=== PATIENT | male | born 1960 | race Caucasian/White ===

== ENCOUNTER 2016-11-22 10:21 | Inpatient (IN) | payer MEDICARE, MEDICAID ==
[2016-11-22] MEDS ORDERED: Sodium Chloride 0.9% 10 ML Syringe FLUSH PRN ×2 (10:49→13:57)
--- NOTE | 2016-11-22 10:59 | EDM.PDOC ---
ED HPI SEIZURE COMPLAINT - General Chief Complaint: Syncope Stated Complaint: Fall Time Seen by Provider: 11/22/16 10:55 Source of Information: Reports: Patient History Limitations: Reports: No limitations - History of Present Illness INITIAL COMMENTS - FREE TEXT/NARRATIVE: Per pt he was dizzy. per Health services, pt had his hypertension meds changed last week and today when he was to get his medication she went by the house and fell 3 times during her visit. States upon checking his blood pressure, the systolic number was in the 70s. Systolic BP 71 upon arrival. Denies pain . Per [facility], pt had similar episode last week. Symptom Onset Date: 11/22/16 Timing/Duration: Reports: intermittent Event Occurred (Where): home Event (Witnessed/Unwitnessed): witnessed Context: Reports: new/change in medications Pre Event Symptom(s): Reports: no other symptoms Event Symptoms: Reports: no other symptoms - Related Data Allergies/ADRs: Allergies Allergy/AdvReac Type Severity Reaction Status Date / Time No Known Allergies Allergy Verified 07/01/16 20:43 Home Meds: Home Meds Albuterol Inhaler 2 puff IH QID PRN 01/12/14 [History] Alumina/Magnesia/Simethicone 2 tbsp PO TID PRN 01/12/14 [History] Amitriptyline [Elavil] 150 mg PO QPM 01/12/14 [History] Budesonide/Formoterol [Symbicort 160-4.5 MCG] 2 puff IH BID 01/12/14 [History] Cholecalciferol (Vitamin D3) [Vitamin D3] 2 tab PO DAILY 01/12/14 [History] Cyclobenzaprine HCl [Amrix] 15 mg PO BID PRN 01/12/14 [History] Dextran 70/Hypromellose/PF [Artificial Tears Drops] 2 drop OP QID PRN 01/12/14 [ History] Folic Acid 1 mg PO DAILY 01/12/14 [History] Gabapentin [Neurontin] 3 caplet PO TID 01/12/14 [History] Methocarbamol [Robaxin] 1,000 tab PO TID 01/12/14 [History] Multivitamin with Minerals [Multivitamins with Minerals] 1 tab PO DAILY [History] Omeprazole 20 mg PO DAILY 01/12/14 [History] QUEtiapine [SEROquel] 100 tab PO BID PRN 01/12/14 [History] Simvastatin [Zocor] 40 mg PO BEDTIME 01/12/14 [History] Thiamine HCl 100 mg PO DAILY 01/12/14 [History] hydrOXYzine HCl [Atarax] 25 mg PO TID PRN 01/12/14 [History] Lisinopril/Hydrochlorothiazide [Lisinopril-Hctz 10-12.5 mg Tab] 1 tab PO DAILY 11/22/16 [History] Past Medical History HEENT History: Reports: Impaired vision Cardiovascular History: Reports: Hypertension Respiratory History: Reports: Asthma Musculoskeletal History: Reports: Back pain, chronic Neurological History: Reports: Concussion Social & Family History - Family History Family Medical History: Noncontributory - Tobacco Use Smoking Status *Q: Current Every Day Smoker Years of Tobacco use: 46 Packs/Tins Daily: 1 Used Tobacco, but Quit: No Second Hand Smoke Exposure: Yes - Caffeine Use Caffeine Use: Reports: Coffee, Energy drinks, Soda, Tea - Alcohol Use Days Per Week of Alcohol Use: 0 - Recreational Drug Use Recreational Drug Use: Yes Drug Use in Last 12 Months: Yes Recreational Drug Type: Reports: Marijuana/Hashish Recreational Drug Use Frequency: Daily ED ROS GENERAL - Review of Systems Review Of Systems: See Below Neurological: Reports: Dizziness, Syncope - Physical Exam Exam: See Below Exam Limited By: No limitations General Appearance: alert, WD/WN, no apparent distress Eye Exam: bilateral eye: normal inspection, PERRL Nose: normal inspection, normal mucosa, no blood Throat/Mouth: Normal inspection, Normal lips, Normal teeth, Normal gums, Normal oropharynx, Normal voice, No airway compromise Head Exam: atraumatic, normocephalic Neck: normal inspection, supple, non-tender, full range of motion Respiratory/Chest: no respiratory distress, lungs clear, normal breath sounds, no accessory muscle use, chest non-tender Cardiovascular: normal peripheral pulses, regular rate, rhythm, no edema, no gallop, no JVD, no murmur, no rub Neuro Exam (Abbreviated): alert, oriented, CN II-XII intact, normal cognition, normal gait, normal reflexes, no motor/sensory deficits Course - Vital Signs Last Recorded V/S: Last Vital Signs Temp 97.6 F 11/22/16 10:23 Pulse 96 11/22/16 10:23 Resp 18 11/22/16 10:23 BP 76/46 L 11/22/16 10:23 Pulse Ox 95 11/22/16 10:23 - Orders/Labs/Meds Orders: Active Orders 24 hr Category Date Time Status EKG Documentation Completion [RC] STAT Care 11/22/16 10:49 Active DRUG SCREEN URINE BIORAD [URCHEM] Stat Lab 11/22/16 10:49 Uncollected UA W/MICROSCOPIC [URIN] Stat Lab 11/22/16 10:49 Uncollected Potassium Chloride [KCL 20 MEQ in Water 100 ML] 20 meq Med 11/22/16 12:10 Active Premix Bag 1 bag IV ONETIME Sodium Chloride 0.9% [Normal Saline] 1,000 ml Med 11/22/16 11:00 Active IV .BOLUS Sodium Chloride 0.9% [Normal Saline] 1,000 ml Med 11/22/16 12:15 Active IV ASDIRECTED Sodium Chloride 0.9% [Saline Flush] Med 11/22/16 10:49 Active 10 ml FLUSH ASDIRECTED PRN Saline Lock Insert [OM.PC] Stat Oth 11/22/16 10:49 Ordered Medication Orders Sodium Chloride (Normal Saline) 1,000 mls @ 500 mls/hr IV .BOLUS EVERARDO Last Admin: 11/22/16 10:53 Dose: 500 mls/hr Potassium Chloride 20 meq/ (Premix) 100 mls @ 50 mls/hr IV ONETIME ONE Stop: 11/22/16 14:09 Last Admin: 11/22/16 12:30 Dose: 50 mls/hr Sodium Chloride (Normal Saline) 1,000 mls @ 100 mls/hr IV ASDIRECTED EVERARDO Last Admin: 11/22/16 12:49 Dose: 100 mls/hr Sodium Chloride (Saline Flush) 10 ml FLUSH ASDIRECTED PRN PRN Reason: Keep Vein Open Last Admin: 11/22/16 10:45 Dose: 10 ml Labs: Laboratory Tests 11/22/16 11/22/16 11/22/16 Range/Units 10:50 10:50 10:50 WBC 11.8 H (5.0-10.0) 10^3/uL RBC 4.78 (4.6-6.2) 10^6/uL Hgb 14.2 (14.0-18.0) g/dL Hct 39.4 L (40.0-54.0) % MCV 82.4 (80-100) fL MCH 29.7 (27.0-34.0) pg MCHC 36.0 H (33.0-35.0) g/dL Plt Count 321 (150-450) 10^3/uL Neut % (Auto) 56.0 (42.2-75.2) % Lymph % (Auto) 32.2 (20.5-50.1) % [place] % (Auto) 7.5 (2-8) % Eos % (Auto) 3.9 H (1.0-3.0) % Baso % (Auto) 0.4 (0.0-1.0) % PT 9.6 (9.0-12.0) SEC INR 1.0 (0.9-1.2) APTT 22.6 (22.0-34.0) SEC Sodium 141 (135-145) mmol/L Potassium 2.3 L* (3.6-5.0) mmol/L Chloride 101 (101-111) mmol/L Carbon Dioxide 28.0 (21.0-31.0) mmol/L Anion Gap 14.3 BUN 16 (7-18) mg/dL Creatinine 1.7 H (0.6-1.3) mg/dL Est Cr Clr Drug Dosing TNP Estimated GFR (MDRD) 42 BUN/Creatinine Ratio 9.41 Glucose 157 H (74-105) mg/dL Lactic Acid (0.5-2.2) mmol/L Calcium 9.5 (8.4-10.2) mg/dl Phosphorus 3.2 (2.5-4.6) mg/dL Magnesium 1.8 (1.8-2.5) mg/dL Total Bilirubin 0.7 (0.2-1.0) mg/dL AST 29 (10-42) IU/L ALT 50 (10-60) IU/L Alkaline Phosphatase 76 (42-121) IU/L Creatine Kinase (26-174) IU/L Creatine Kinase Index (0-2.4) % CK-MB (CK-2) (0.4-4.7) ng/mL Troponin I < 0.02 (0.00-0.02) ng/ml Total Protein 7.0 (6.7-8.2) g/dl Albumin 4.5 (3.2-5.5) g/dl Globulin 2.5 Albumin/Globulin Ratio 1.80 11/22/16 11/22/16 Range/Units 10:50 11:32 WBC (5.0-10.0) 10^3/uL RBC (4.6-6.2) 10^6/uL Hgb (14.0-18.0) g/dL Hct (40.0-54.0) % MCV (80-100) fL MCH (27.0-34.0) pg MCHC (33.0-35.0) g/dL Plt Count (150-450) 10^3/uL Neut % (Auto) (42.2-75.2) % Lymph % (Auto) (20.5-50.1) % [place] % (Auto) (2-8) % Eos % (Auto) (1.0-3.0) % Baso % (Auto) (0.0-1.0) % PT (9.0-12.0) SEC INR (0.9-1.2) APTT (22.0-34.0) SEC Sodium (135-145) mmol/L Potassium (3.6-5.0) mmol/L Chloride (101-111) mmol/L Carbon Dioxide (21.0-31.0) mmol/L Anion Gap BUN (7-18) mg/dL Creatinine (0.6-1.3) mg/dL Est Cr Clr Drug Dosing Estimated GFR (MDRD) BUN/Creatinine Ratio Glucose (74-105) mg/dL Lactic Acid 2.0 (0.5-2.2) mmol/L Calcium (8.4-10.2) mg/dl Phosphorus (2.5-4.6) mg/dL Magnesium (1.8-2.5) mg/dL Total Bilirubin (0.2-1.0) mg/dL AST (10-42) IU/L ALT (10-60) IU/L Alkaline Phosphatase (42-121) IU/L Creatine Kinase 130 (26-174) IU/L Creatine Kinase Index 1.4 (0-2.4) % CK-MB (CK-2) 1.80 (0.4-4.7) ng/mL Troponin I (0.00-0.02) ng/ml Total Protein (6.7-8.2) g/dl Albumin (3.2-5.5) g/dl Globulin Albumin/Globulin Ratio Meds: Medications Generic Name Dose Route Start Last Admin Trade Name Freq PRN Reason Stop Dose Admin Sodium Chloride 1,000 mls @ 500 mls/hr 11/22/16 11:00 11/22/16 10:53 Normal Saline IV 500 mls/hr .BOLUS EVERARDO Administration Potassium Chloride 20 meq/ 100 mls @ 50 mls/hr 11/22/16 12:10 11/22/16 12:30 Premix IV 11/22/16 14:09 50 mls/hr ONETIME ONE Administration Sodium Chloride 1,000 mls @ 100 mls/hr 11/22/16 12:15 11/22/16 12:49 Normal Saline IV 100 mls/hr ASDIRECTED EVERARDO Administration Sodium Chloride 10 ml 11/22/16 10:49 11/22/16 10:45 Saline Flush FLUSH 10 ml ASDIRECTED PRN Administration Keep Vein Open - Radiology Interpretation Free Text/Narrative:: no acute findings - Re-Assessments/Exams Free Text/Narrative Re-Assessment/Exam: 11/22/16 12:[address] James for observation admission for potassium replenishment and blood pressure monitoring. Departure - Departure Time of Disposition: 12:57 Disposition: Admitted As Inpatient 65 Condition: good Clinical Impression: Hypokalemia, Dehydration Instructions: Dehydration, Adult, [id number], Hypokalemia Forms: ED Department Discharge - My Orders Last 24 Hours: My Active Orders 11/22/16 10:49 EKG Documentation Completion [RC] STAT DRUG SCREEN URINE BIORAD [URCHEM] Stat UA W/MICROSCOPIC [URIN] Stat Sodium Chloride 0.9% [Saline Flush] 10 ml FLUSH ASDIRECTED PRN Saline Lock Insert [OM.PC] Stat 11/22/16 11:00 Sodium Chloride 0.9% [Normal Saline] 1,000 ml IV .BOLUS 11/22/16 12:10 Potassium Chloride [KCL 20 MEQ in Water 100 ML] 20 meq Premix Bag 1 bag IV ONETIME 11/22/16 12:15 Sodium Chloride 0.9% [Normal Saline] 1,000 ml IV ASDIRECTED - Assessment/Plan Last 24 Hours: My Active Orders 11/22/16 10:49 EKG Documentation Completion [RC] STAT DRUG SCREEN URINE BIORAD [URCHEM] Stat UA W/MICROSCOPIC [URIN] Stat Sodium Chloride 0.9% [Saline Flush] 10 ml FLUSH ASDIRECTED PRN Saline Lock Insert [OM.PC] Stat 11/22/16 11:00 Sodium Chloride 0.9% [Normal Saline] 1,000 ml IV .BOLUS 11/22/16 12:10 Potassium Chloride [KCL 20 MEQ in Water 100 ML] 20 meq Premix Bag 1 bag IV ONETIME 11/22/16 12:15 Sodium Chloride 0.9% [Normal Saline] 1,000 ml IV ASDIRECTED
[2016-11-22] MEDS ORDERED: Sodium Chloride 0.9% 1,000 ML IV SCH ×2 (11:00→12:15)
[2016-11-22 11:24] LABS: CHLORIDE,CL 101 mmol/L (101-111); SODIUM,NA 141 mmol/L (135-145)
--- NOTE | 2016-11-22 12:03 | CR ---
Clinical history: 55-year-old male syncopal episode. Interpretation: No acute cardiopulmonary abnormality. Normal cardiac silhouette without alveolar edema or dependent effusion. No lung mass, hilar lymphadenopathy or focal lobar pneumonia. No pneumothorax.
--- NOTE | 2016-11-22 12:06 | CT ---
Clinical history: 55-year-old hypertensive male smoker who experienced a syncopal episode. Scan technique: Volume acquisition of data emergency unenhanced CT scan of the head obtained with pa tient lying supine on the Siemens multi slice CT scanner [facility]. All data archived in the PACS system for storage and study (bone/brain windows). Interpretation: Uniformly thick bony calvarium without sign of pathologic skeletal lesion, skull fra cture, underlying brain contusion or epidural/subdural hematoma. Prominent but symmetric cerebral cortical atrophy. Underlying mirror-image normal ventricular system i.e. no hydrocephalus. No supratentorial or posterior fossa mass lesion and no focal areas of ischemic infarct or signs of acute intracerebral/intraventricular/subarachnoid bleed. (Physiologic midline pineal and symmetric choroid plexus calcifications). CONCLUSION: Atrophy. No sign of closed head injury, intracranial mass or infarct.
[2016-11-22] MEDS ORDERED: Potassium Chloride 20 MEQ in Premix Bag 1 BAG IV ONE (12:10)
[2016-11-22] MEDS ORDERED: Albuterol 6.7 GM Inhaler INH PRN (13:49)
[2016-11-22] MEDS ORDERED: Polyvinyl Alcohol 1.4% Ophth Soln 15 ML Bottle EYEBOTH PRN (13:49)
--- NOTE | 2016-11-22 14:15 | HP ---
CHIEF COMPLAINT: Recurrent fall. HISTORY OF PRESENT ILLNESS: The patient is a 55-year-old male who was admitted through the emergency room because the patient was noted by the Health Services that when they went to the house of the patient, the patient fell three times and was complaining of being dizzy. The blood pressure was checked and the systolic blood pressure was in the 70s. According to the Health Services, the patient's blood pressure medication was changed last week. At this time, the patient started having these dizzy episodes and now almost into a near syncope. The patient denies though any headache or chest pain, abdominal pain, nausea, vomiting, fever or chills. PAST MEDICAL HISTORY: Remarkable for hypertension, asthma, and chronic low back pain. SOCIAL HISTORY: The patient is single. Smokes one pack per day for about 40 years. Denies any recent alcohol intake.admits to recreational drug use( marijuana). FAMILY HISTORY: Noncontributory. REVIEW OF SYSTEMS: As in HPI. The rest of the review of systems is negative. HOME MEDICATIONS: 1. Albuterol inhaler. 2. Magnesium/simethicone. 3. Amitriptyline. 4. Symbicort. 5. Vitamin D3. 6. Amrix. 7. Artificial teardrops. 8. Folic acid. 9. Gabapentin. 10.Robaxin. 11.Multivitamins. 12.Omeprazole. 13.Lisinopril/hydrochlorothiazide. 14.Simvastatin. 15.Seroquel. 16.Thiamine. PHYSICAL EXAMINATION: General: The patient is alert and oriented. Vital signs: Blood pressure on arrival in the emergency room, systolic was 70 and after some IV fluids bolus, blood pressure is 103/80. SHEENT: Normocephalic. There are no signs of trauma. Extraocular muscles are intact. There is pink palpebral conjunctiva. Sclerae anicteric. Heart: Regular rate and rhythm. Normal S1 and S2. No gallops. No rubs. Lungs: Equal bilaterally. No crackles. No wheezing. Abdomen: Soft and nontender. Bowel sounds positive. Extremities: Negative for any gross deformities. No significant pedal edema. Neurologic: Nonfocal. LABORATORY AND X-RAY DATA: WBC is 11.8, hemoglobin is 14.2, hematocrit is 39.4, platelet is 321. Comp panel; potassium is 2.3, creatinine is 1.7, glucose is 157. The rest of the panel is unremarkable. Magnesium level is 1.8 and phosphorus is 3.2. CPK-MB is less than 0.02, troponin is less than 0.02, the rest of the panel is unremarkable. CAT scan of the head, atrophy but no signs of intracranial mass or infarcts. Chest x-ray is negative. ADMITTING DIAGNOSES: 1. Recurrent fall/syncope, most likely secondary to hypotension secondary to the blood pressure medication. 2. Hypokalemia. 3. Azotemia. 4. Asthma. 5. History of hypertension. TREATMENT PLAN: The patient is going to be admitted to observation. He will be on telemetry. He will be given IV fluids, normal saline. Potassium will be repleted. The rest of the management as necessary. Basic metabolic panel and CBC will be rechecked in a.m. The patient's lisinopril and hydrochlorothiazide is going to be discontinued at this time. [facility] /[id number] MTDDenisa
[2016-11-22] MEDS: Sodium Chloride 0.9% with KCl 1,000 ML IV SCH (14:47)
[2016-11-22] MEDS: Nicotine 21 MG/24 Hr Patch TRDERM SCH (14:48)
[2016-11-22] MEDS: Amitriptyline 25 MG Tab PO SCH (20:32)
[2016-11-22] MEDS: Simvastatin 40 MG Tab PO SCH (20:34)
[2016-11-22] MEDS ORDERED: Non-Formulary Medication 1 Each (Budesonide/Formoterol 2 PUFF) IH SCH (21:00)
[2016-11-23] MEDS: Ibuprofen 200 MG Tab PO PRN ×2 (00:18→07:49)
[2016-11-23] MEDS: Sodium Chloride 0.9% with KCl 1,000 ML IV SCH (04:16)
[2016-11-23] MEDS: Acetaminophen 325 MG Tab PO PRN ×3 (04:36→19:49)
[2016-11-23] MEDS: Omeprazole 20 MG Cap.CR PO SCH (06:13)
[2016-11-23 06:55] LABS: CHLORIDE,CL 107 mmol/L (101-111); SODIUM,NA 145 mmol/L (135-145)
[2016-11-23] MEDS ORDERED: Sodium Chloride 0.9% 10 ML Syringe FLUSH PRN (08:57)
[2016-11-23] MEDS ORDERED: Potassium Chloride 10 MEQ Tab.ER PO ONE (08:58)
[2016-11-23] MEDS: Thiamine 100 MG Tab PO SCH (09:03)
[2016-11-23] MEDS: Cholecalciferol (Vitamin D3) 400 Unit Tab PO SCH (09:03)
[2016-11-23] MEDS: Enoxaparin 40 MG/0.4 ML Syringe SUBCUT SCH (09:04)
[2016-11-23] MEDS: Folic Acid 1 MG Tab PO SCH (09:04)
[2016-11-23] MEDS: Nicotine 21 MG/24 Hr Patch TRDERM SCH (09:04)
[2016-11-23] MEDS: Ibuprofen 800 MG Tab PO SCH (10:16)
--- NOTE | 2016-11-23 10:57 | PN ---
DATE: 11/23/2016 SUBJECTIVE: The patient has been doing well and so far has not had any problems with dizziness and he has been going to the bathroom without any dizziness or fall. Telemetry has been sinus rhythm with no significant arrhythmia. The patient denies any chest pain, shortness of breath, abdominal pain, or any other significant complaint except for his chronic low back pain. LABORATORY DATA: Lab workup this morning, CBC; WBC is 9.9, hemoglobin is 12.9, hematocrit is 36.4, platelet is 300. Chem-6; potassium is 3.4 (improving), the rest of the panel unremarkable. OBJECTIVE: Vital Signs: Blood pressure is 148/86, pulse of 67, respirations of 20, temperature of 98. Heart: Regular rate and rhythm. Normal S1 and S2. No gallops. No rubs. Lungs: Coarse breath sounds bilaterally, but no significant crackles. Abdomen: Soft, nontender. Bowel sounds positive. Extremities: Negative for any significant pedal edema. No calf tenderness. PLAN: We will discontinue the IV fluids and will give him some potassium supplementation orally, and we will recheck a basic metabolic panel in a.m. We will increase his activity to ad juan r and we will continue to monitor him. If he continues to do well, anticipate discharge in a.m. [facility] /[id number]
[2016-11-23] MEDS: Simvastatin 40 MG Tab PO SCH (20:51)
[2016-11-23] MEDS: Amitriptyline 25 MG Tab PO SCH (20:52)
[2016-11-24] MEDS: Omeprazole 20 MG Cap.CR PO SCH (06:01)
[2016-11-24 06:57] LABS: CHLORIDE,CL 100 mmol/L (101-111); SODIUM,NA 144 mmol/L (135-145)
[2016-11-24] MEDS ORDERED: Potassium Chloride 10 MEQ Tab.ER PO ONE (08:05)
[2016-11-24] MEDS: Cholecalciferol (Vitamin D3) 400 Unit Tab PO SCH (08:14)
[2016-11-24] MEDS: Folic Acid 1 MG Tab PO SCH (08:14)
[2016-11-24] MEDS: Thiamine 100 MG Tab PO SCH (08:14)
[2016-11-24] MEDS: Ibuprofen 800 MG Tab PO SCH (08:14)
[2016-11-24] MEDS: Enoxaparin 40 MG/0.4 ML Syringe SUBCUT SCH (08:15)
[2016-11-24] MEDS: Nicotine 21 MG/24 Hr Patch TRDERM SCH (08:15)
[2016-11-24] MEDS ORDERED: amLODIPine 5 MG Tab PO SCH (09:00)
--- NOTE | 2016-11-24 09:18 | PN ---
DATE: 11/24/2016 SUBJECTIVE: The patient continues to do well. He has been up and about and he denies any dizziness or syncope or falling and he denies any chest pain, shortness of breath, nor any other complaints, and he would like to go home today. His blood pressure though is slowly creeping up, and potassium is still slightly low. Otherwise, no other concerns. OBJECTIVE: Vital Signs: Blood pressure is 165/79, pulse 72, respirations 20, temperature of 97.8. Heart: Regular rate and rhythm. Normal S1 and S2. No gallops. No rubs. Lungs: Equal bilaterally. No crackles. No wheezing. Abdomen: Soft, nontender. Bowel sounds positive. Extremities: Negative for any pedal edema. No calf tenderness. PLAN: I am going to start the patient on Norvasc 5 mg daily. We will cut down the dose of his simvastatin to 20 mg a day because of the drug interaction with Norvasc. I am also going to give potassium 40 mEq p.o. x1 today. We will plan to discharge him this afternoon as the patient is insistent in going home, but we will have him follow up with Dr. Schultz/[facility] next week for a recheck of his blood pressure and lab workup. ANDREA /[id number]
--- NOTE | 2016-11-24 12:17 | DISCH ---
FINAL DIAGNOSES: 1. Syncope secondary to hypotension secondary to the blood pressure medication. 2. Hypokalemia. 3. Dehydration. 4. Asthma. 5. Azotemia. 6. Hypertension. BRIEF HISTORY OF PRESENT ILLNESS: See H and P. PERTINENT LAB, X-RAY, AND OTHER TESTS: Please see H and P. HOSPITAL COURSE: The patient was admitted to telemetry floor. Patient was given IV fluids. Potassium was repleted and lisinopril and hydrochlorothiazide was discontinued. The patient did well with the above regimen. His telemetry remained in sinus rhythm and telemetry was discontinued and follow up blood workup showed improvement of his creatinine, but potassium was still slightly running low and this was again repleted. During the hospitalization, patient's blood pressure started creeping up and because of this, amlodipine 5 mg was added to his regimen. As patient would like to go home and insistent as he is feeling much better, patient was discharged and he is going to follow up with Dr. Gonzalez[facility] next week for a recheck of his blood pressure and recheck his basic metabolic panel. Patient's simvastatin was also decreased to 20 mg a day because of the interaction with amlodipine. CONDITION ON DISCHARGE: Improved. [facility] /[id number]
[2016-11-24 12:40] VITALS: BP 156/92
[2016-11-24] MEDS ORDERED: Simvastatin 10 MG Tab PO SCH (21:00)
--- NOTE | 2016-12-03 10:15 | EKG ---
11/22/2016 - REGINA ALMONTE- EKG is sinus rhythm with a rate of 82. Normal [place] interval. Normal axis. There is a nonspecific intraventricular conduction delay and nonspecific ST-T wave changes on the anterolateral leads. There are no signs of acute myocardial injury. [facility] /[id number]
== END 2016-11-24 12:41 | disposition home or self-care (01) | DRG 312 ==
LOC: DL.ED 10:21 → DL.MS 13:35 → OBSVTOIN 13:39
PROVIDERS: ADMIT Internal Medicine; ATTEND Internal Medicine
DX: I95.2 Hypotension due to drugs (principal); T50.995A Adverse effect of other drugs, medicaments and biological substances, initial encounter; E87.6 Hypokalemia; E86.0 Dehydration; J45.909 Unspecified asthma, uncomplicated; I10 Essential (primary) hypertension; M54.5 Low back pain; G89.29 Other chronic pain; F17.210 Nicotine dependence, cigarettes, uncomplicated
CPT/HCPCS: 36415; 70450; 71010; 80053; 82550; 82553; 83605; 83735; 84100; 84484; 85025; 85610; 85730; 93005; 93010; 96361; 96365; 99284; 99285; J3480; J7030 ×2; J7050; 80048; 80305; 81001; A9270-GY

== ENCOUNTER 2016-12-18 16:39 | Observation (INO) | payer MEDICARE, MEDICAID ==
--- NOTE | 2016-12-18 17:18 | EDM.PDOC ---
ED HPI Behavioral Health - General Stated Complaint: INCREASED CONFUSION/RECENT FALLS Time Seen by Provider: 12/18/16 16:50 Source of Information: Reports: Patient, Family Exam Limitations: Reports: No limitations - History of Present Illness INITIAL COMMENTS - FREE TEXT/NARRATIVE: This 56 yo male patient was brought to the ED by his behavioral health case manager and his guardian due to altered mentation. The patient reports he was placed on a mental health hold yesterday by the [facility] due to standing outside his door because he lost his keys. The patient reports he has been having some chronic back pain, but his pain is not new. The patient reports he did fall and hit his head a couple of weeks ago, but reports feeling well now. The patient's case workers report the patient has been having increased confusion over the past 3 weeks. The patient currently lives in his own apartment with assistance from his [facility]. The patient's behavioral health case manager and guardian believe that the patient needs to be placed in a basic unit. Onset of Symptoms: Reports: gradual Duration of Symptoms: Reports: Week(s): (3), Constant, Getting worse Severity: moderate Context, Behavioral Health: Reports: other - Related Data Allergies Allergy/AdvReac Type Severity Reaction Status Date / Time No Known Allergies Allergy Verified 12/18/16 16:51 Home Medications: Home Meds Albuterol Inhaler 2 puff IH QID PRN 01/12/14 [History] Alumina/Magnesia/Simethicone 2 tbsp PO TID PRN 01/12/14 [History] Amitriptyline [Elavil] 150 mg PO BEDTIME 01/12/14 [History] Budesonide/Formoterol [Symbicort 160-4.5 MCG] 2 puff IH BID 01/12/14 [History] Cholecalciferol (Vitamin D3) [Vitamin D3] 2,000 units PO DAILY 01/12/14 [History ] Folic Acid 1 mg PO DAILY 01/12/14 [History] Multivitamin with Minerals [Multivitamins with Minerals] 1 tab PO DAILY [History] Omeprazole 40 mg PO DAILY 01/12/14 [History] Thiamine HCl 100 mg PO DAILY 01/12/14 [History] hydrOXYzine HCl [hydrOXYzine] 25 mg PO TID PRN 01/12/14 [History] Cyclobenzaprine [Flexeril] 10 mg PO BEDTIME 11/22/16 [History] DULoxetine HCl [Duloxetine HCl] 60 mg PO DAILY 11/22/16 [History] Ibuprofen 800 mg PO TID PRN 11/22/16 [History] Lidocaine 5% [Lidoderm 5%] 1 patch TRDERM Q12H 11/22/16 [History] Nicotine Polacrilex [Nicotine Gum] 1 piece PO Q2H PRN 11/22/16 [History] Paliperidone Palmitate [Invega Sustenna] 117 mg IM Q28D 11/22/16 [History] Simvastatin [Zocor] 20 mg PO BEDTIME 30 Days 11/24/16 [Rx] amLODIPine [Norvasc] 5 mg PO DAILY 30 Days 11/24/16 [Rx] Dextran 70/Hypromellose [Artificial Tears] 2 drop EYEBOTH QID PRN 12/18/16 [ History] Potassium Chloride 20 meq PO BID 12/18/16 [History] Past Medical History HEENT History: Reports: Impaired vision Cardiovascular History: Reports: Hypertension Respiratory History: Reports: Asthma Musculoskeletal History: Reports: Back pain, chronic Neurological History: Reports: Concussion - Infectious Disease History Infectious Disease History: Reports: Chicken pox Social & Family History - Family History Family Medical History: Noncontributory - Tobacco Use Smoking Status *Q: Current Every Day Smoker Years of Tobacco use: 40 Packs/Tins Daily: 1 Used Tobacco, but Quit: No Second Hand Smoke Exposure: Yes - Caffeine Use Caffeine Use: Reports: Coffee - Alcohol Use Days Per Week of Alcohol Use: 0 - Recreational Drug Use Recreational Drug Use: No Drug Use in Last 12 Months: Yes Recreational Drug Type: Reports: Marijuana/Hashish Recreational Drug Use Frequency: Daily ED ROS GENERAL - Review of Systems Review Of Systems: ROS reveals no pertinent complaints other than HPI. ED EXAM, BEHAVIORAL HEALTH - Physical Exam Exam: See Below Exam Limited By: No limitations General Appearance: alert, WD/WN, mild distress, thin Eye Exam: bilateral eye: EOMI, normal inspection, PERRL Ears: normal external exam, normal canal, hearing grossly normal, normal TMs Nose: normal inspection, normal mucosa, no blood Throat/Mouth: Normal inspection, Normal lips, Normal teeth, Normal gums, Normal oropharynx, Normal voice, No airway compromise Head: atraumatic, normocephalic Neck: normal inspection, supple, non-tender, full range of motion Respiratory/Chest: no respiratory distress, lungs clear, normal breath sounds, no accessory muscle use, chest non-tender Cardiovascular: normal peripheral pulses, regular rate, rhythm, no edema, no gallop, no JVD, no murmur, no rub GI/Abdominal: normal bowel sounds, soft, non tender, no organomegaly, no distention, no abnormal bruit, no mass (Male) Exam: Deferred Rectal (Males) Exam: Deferred Back Exam: normal inspection, full range of motion, NT Extremities: normal inspection, normal range of motion, non-tender, normal capillary refill, no pedal edema Neurological: alert, normal mood/affect, CN II-XII intact, normal cognition, normal gait, normal reflexes, no motor/sensory deficits, oriented x 3 Psychiatric: alert, other (forgetful ) Skin Exam: Warm, Dry, Intact, Normal color, No rash COURSE, BEHAVIORAL HEALTH COMP - Course Vital Signs: Last Vital Signs Temp 36.6 C 12/18/16 18:33 Pulse 85 12/18/16 18:33 Resp 18 12/18/16 18:33 BP 112/70 12/18/16 18:33 Pulse Ox 99 12/18/16 18:33 Orders, Labs, Meds: Active Orders 24 hr Category Date Time Status CULTURE BLOOD [] Stat Lab 12/18/16 17:07 Received CULTURE BLOOD [] Stat Lab 12/18/16 17:33 Ordered Laboratory Tests 12/18/16 12/18/16 12/18/16 Range/Units 17:00 17:00 17:07 WBC 23.0 H (5.0-10.0) 10^3/uL RBC 4.81 (4.6-6.2) 10^6/uL Hgb 14.2 (14.0-18.0) g/dL Hct 40.1 (40.0-54.0) % MCV 83.4 (80-100) fL MCH 29.5 (27.0-34.0) pg MCHC 35.4 H (33.0-35.0) g/dL Plt Count 406 (150-450) 10^3/uL Neut % (Auto) 80.8 H (42.2-75.2) % Lymph % (Auto) 12.2 L (20.5-50.1) % Cass % (Auto) 5.7 (2-8) % Eos % (Auto) 1.1 (1.0-3.0) % Baso % (Auto) 0.2 (0.0-1.0) % Sodium (135-145) mmol/L Potassium (3.6-5.0) mmol/L Chloride (101-111) mmol/L Carbon Dioxide (21.0-31.0) mmol/L Anion Gap BUN (7-18) mg/dL Creatinine (0.6-1.3) mg/dL Est Cr Clr Drug Dosing mL/min Estimated GFR (MDRD) BUN/Creatinine Ratio Glucose (74-105) mg/dL Lactic Acid (0.5-2.2) mmol/L Calcium (8.4-10.2) mg/dl Magnesium (1.8-2.5) mg/dL Total Bilirubin (0.2-1.0) mg/dL AST (10-42) IU/L ALT (10-60) IU/L Alkaline Phosphatase (42-121) IU/L Ammonia (11-35) umol/L Total Protein (6.7-8.2) g/dl Albumin (3.2-5.5) g/dl Globulin Albumin/Globulin Ratio Amylase (28-100) U/L Lipase (22-51) U/L Urine Color Yellow (YELLOW) Urine Appearance Clear (CLEAR) Urine pH 6.5 (5.0-9.0) Ur Specific [place] 1.025 (1.005-1.030) Urine Protein Trace H (NEGATIVE) Urine Glucose (UA) Negative (NEGATIVE) Urine Ketones Negative (NEGATIVE) Urine Occult Blood Negative (NEGATIVE) Urine Nitrite Negative (NEGATIVE) Urine Bilirubin Small H (NEGATIVE) Urine Urobilinogen 0.2 (0.2-1.0) mg/dL Ur Leukocyte Esterase Negative (NEGATIVE) Urine RBC 0-5 /HPF Urine WBC 0-5 (0-5/HPF) /HPF Ur Epithelial Cells Few /HPF Calcium Oxalate Crystal Few H /HPF Urine Bacteria Occasional (0-FEW/HPF) /HPF Urine Opiates Screen Negative (NEGATIVE) Ur Oxycodone Screen Negative (NEGATIVE) Urine Methadone Screen Negative (NEGATIVE) Acetaminophen Ur Barbiturates Screen Negative (NEGATIVE) U Tricyclic Antidepress Positive H (NEGATIVE) Ur Phencyclidine Scrn Negative (NEGATIVE) Ur Amphetamine Screen Negative (NEGATIVE) U Methamphetamines Scrn Negative (NEGATIVE) Urine MDMA Screen Negative (NEGATIVE) U Benzodiazepines Scrn Negative (NEGATIVE) Urine Cocaine Screen Negative (NEGATIVE) U Marijuana (THC) Screen Negative (NEGATIVE) Ethyl Alcohol mg/dL 12/18/16 12/18/16 12/18/16 Range/Units 17:07 17:07 17:07 WBC (5.0-10.0) 10^3/uL RBC (4.6-6.2) 10^6/uL Hgb (14.0-18.0) g/dL Hct (40.0-54.0) % MCV (80-100) fL MCH (27.0-34.0) pg MCHC (33.0-35.0) g/dL Plt Count (150-450) 10^3/uL Neut % (Auto) (42.2-75.2) % Lymph % (Auto) (20.5-50.1) % Cass % (Auto) (2-8) % Eos % (Auto) (1.0-3.0) % Baso % (Auto) (0.0-1.0) % Sodium 142 (135-145) mmol/L Potassium 3.0 L (3.6-5.0) mmol/L Chloride 103 (101-111) mmol/L Carbon Dioxide 31.0 (21.0-31.0) mmol/L Anion Gap 11.0 BUN 17 (7-18) mg/dL Creatinine 0.8 (0.6-1.3) mg/dL Est Cr Clr Drug Dosing 98.56 mL/min Estimated GFR (MDRD) > 60 BUN/Creatinine Ratio 21.25 Glucose 111 H (74-105) mg/dL Lactic Acid 1.5 (0.5-2.2) mmol/L Calcium 9.4 (8.4-10.2) mg/dl Magnesium 2.0 (1.8-2.5) mg/dL Total Bilirubin 0.6 (0.2-1.0) mg/dL AST 28 (10-42) IU/L ALT 43 (10-60) IU/L Alkaline Phosphatase 86 (42-121) IU/L Ammonia 34 (11-35) umol/L Total Protein 7.1 (6.7-8.2) g/dl Albumin 4.3 (3.2-5.5) g/dl Globulin 2.8 Albumin/Globulin Ratio 1.54 Amylase 31 (28-100) U/L Lipase 26 (22-51) U/L Urine Color (YELLOW) Urine Appearance (CLEAR) Urine pH (5.0-9.0) Ur Specific [place] (1.005-1.030) Urine Protein (NEGATIVE) Urine Glucose (UA) (NEGATIVE) Urine Ketones (NEGATIVE) Urine Occult Blood (NEGATIVE) Urine Nitrite (NEGATIVE) Urine Bilirubin (NEGATIVE) Urine Urobilinogen (0.2-1.0) mg/dL Ur Leukocyte Esterase (NEGATIVE) Urine RBC /HPF Urine WBC (0-5/HPF) /HPF Ur Epithelial Cells /HPF Calcium Oxalate Crystal /HPF Urine Bacteria (0-FEW/HPF) /HPF Urine Opiates Screen (NEGATIVE) Ur Oxycodone Screen (NEGATIVE) Urine Methadone Screen (NEGATIVE) Acetaminophen < 10 Ur Barbiturates Screen (NEGATIVE) U Tricyclic Antidepress (NEGATIVE) Ur Phencyclidine Scrn (NEGATIVE) Ur Amphetamine Screen (NEGATIVE) U Methamphetamines Scrn (NEGATIVE) Urine MDMA Screen (NEGATIVE) U Benzodiazepines Scrn (NEGATIVE) Urine Cocaine Screen (NEGATIVE) U Marijuana (THC) Screen (NEGATIVE) Ethyl Alcohol 5 mg/dL Departure - Departure Time of Disposition: 18:47 Disposition: DC/Tfer to [facility] 02 Clinical Impression: Altered mental state Qualifiers: Altered mental status type: unspecified Qualified Code(s): R41.82 - Altered mental status, unspecified Leukocytosis Qualifiers: Leukocytosis type: other Qualified Code(s): D72.828 - Other elevated white blood cell count Care Plan Goals: Discussed the examination, history, lab, CT and x-ray results with Dr. Gomez. Dr. Gomez accepted the patient for continued evaluation and management as an inpatient at . - My Orders Last 24 Hours: My Active Orders 12/18/16 17:07 CULTURE BLOOD [BC] Stat 12/18/16 17:33 CULTURE BLOOD [BC] Stat - Assessment/Plan Last 24 Hours: My Active Orders 12/18/16 17:07 CULTURE BLOOD [BC] Stat 12/18/16 17:33 CULTURE BLOOD [BC] Stat
[2016-12-18 17:37] LABS: CHLORIDE,CL 103 mmol/L (101-111); SODIUM,NA 142 mmol/L (135-145)
[2016-12-18 17:47] LABS: ACETAMINOPHEN < 10
[2016-12-18] MEDS ORDERED: Magnesium Hydroxide 400 MG/5 ML Susp 30 ML Cup PO PRN (19:58)
[2016-12-18] MEDS ORDERED: Acetaminophen 325 MG Tab PO PRN (19:58)
[2016-12-18] MEDS ORDERED: Potassium Chloride 10 MEQ Tab.ER PO ONE (20:08)
[2016-12-18] MEDS: Nicotine 21 MG/24 Hr Patch TRDERM SCH (20:21)
[2016-12-18] MEDS: Check Patch TRDERM SCH (20:22)
[2016-12-18] MEDS ORDERED: Albuterol 6.7 GM Inhaler INH PRN (20:31)
[2016-12-18] MEDS ORDERED: Polyvinyl Alcohol 1.4% Ophth Soln 15 ML Bottle EYEBOTH PRN (20:31)
[2016-12-18] MEDS: Cyclobenzaprine 10 MG Tab PO SCH ×2 (21:25→21:37)
[2016-12-18] MEDS: Amitriptyline 25 MG Tab PO SCH ×2 (21:28→21:37)
[2016-12-18] MEDS: Ibuprofen 800 MG Tab PO PRN ×2 (21:31→21:38)
[2016-12-18] MEDS: hydrOXYzine HCl 25 MG Tab PO PRN ×2 (21:31→21:37)
[2016-12-18] MEDS: Potassium Chloride 10 MEQ Tab.ER PO SCH (21:37)
[2016-12-19] MEDS: Formoterol/Mometasone 200-5 MCG 8.8 GM Inhaler IH SCH ×3 (00:57→17:49)
[2016-12-19] MEDS: Omeprazole 20 MG Cap.CR PO SCH (05:38)
[2016-12-19] MEDS: Folic Acid 1 MG Tab PO SCH (09:00)
[2016-12-19] MEDS: DULoxetine 30 MG Cap PO SCH (09:00)
[2016-12-19] MEDS: Thiamine 100 MG Tab PO SCH (09:01)
[2016-12-19] MEDS: amLODIPine 5 MG Tab PO SCH (09:01)
[2016-12-19] MEDS: Multivitamins, Therapeutic with Minerals Tab PO SCH (09:01)
[2016-12-19] MEDS: Potassium Chloride 10 MEQ Tab.ER PO SCH ×2 (09:01→17:48)
[2016-12-19] MEDS ORDERED: Potassium Chloride 10 MEQ Tab.ER PO ONE ×2 (11:52→18:00)
[2016-12-19] MEDS: Lidocaine 5% 700 MG Patch TRDERM SCH (17:51)
[2016-12-19] MEDS: Check Patch TRDERM SCH (21:45)
[2016-12-19] MEDS: Amitriptyline 25 MG Tab PO SCH (21:46)
[2016-12-19] MEDS: Cyclobenzaprine 10 MG Tab PO SCH (21:47)
[2016-12-19] MEDS: Nicotine 21 MG/24 Hr Patch TRDERM SCH (21:56)
[2016-12-20] MEDS: Formoterol/Mometasone 200-5 MCG 8.8 GM Inhaler IH SCH (06:28)
[2016-12-20] MEDS: Omeprazole 20 MG Cap.CR PO SCH (06:30)
[2016-12-20] MEDS: Potassium Chloride 10 MEQ Tab.ER PO SCH (10:01)
[2016-12-20] MEDS: DULoxetine 30 MG Cap PO SCH (10:01)
[2016-12-20] MEDS: Multivitamins, Therapeutic with Minerals Tab PO SCH (10:02)
[2016-12-20] MEDS: amLODIPine 5 MG Tab PO SCH (10:02)
[2016-12-20] MEDS: Folic Acid 1 MG Tab PO SCH (10:02)
[2016-12-20] MEDS: Thiamine 100 MG Tab PO SCH (10:03)
[2016-12-20] MEDS: Lidocaine 5% 700 MG Patch TRDERM SCH (10:04)
[2016-12-20 10:07] VITALS: BP 125/80
--- NOTE | 2016-12-31 13:23 | HP ---
REASON FOR ADMISSION: Increased confusion over the past 3 to 4 days. HISTORY OF PRESENT ILLNESS: Mg is a 56-year-old gentleman, who is followed by the [facility]. He has a history of schizoaffective disorder. Over the last few days, he has become increasingly confused. He had fallen in his apartment and hit the back of his head. He was not sure if he had tripped. There was no loss of consciousness, but he became increasingly agitated and it was felt that he needed to be placed in a safe environment. Therefore, last night he was held [facility] safety reasons only. Today, he was brought to the hospital to be evaluated and admitted and to consider appropriate placement. PAST MEDICAL HISTORY: 1. Schizoaffective disorder; he is followed by [facility]. He had a previous admission last March to the [facility]. He had been noncompliant with his oral antipsychotic medications. Since that time, he has been on a depot injection of an antipsychotic and things have been more stable. 2. COPD; for which he has been hospitalized in the past. 3. Tobacco habituation; he continues to smoke at least a pack cigarettes a day. 4. Hypertension of many years duration. PAST SURGICAL HISTORY: Tonsils and adenoids removed. SOCIAL HISTORY: He is single. He has no children. He has a sister who lives in [place]. He has one brother who is and he thinks he may have four more siblings, but he is unclear about the details. He is a smoker of cigarettes since the age of 12. He smokes approximately 1 pack of cigarettes a day, which would give him an approximate 44-pack year history of smoking. He was a heavy alcohol drinker in the past, but has had no alcohol for the last 2 years. He has 1 pet at his home, a female cat named Mervin. who will be cared for by his sister. He had been living at [facility] for several years and then moved to the [facility] and has lived there for the last 2 to 3 years. The [facility] is managed by [employer] and has managers on site. HISTORY: He served in the [employer]. 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 He does not have a service-related disability, but has been seen at the [facility]. REVIEW OF SYSTEMS: Increased confusion over the last 3 to 4 days. He stated that he fell at his apartment, falling backwards and hitting his head. He did not think he had a loss of consciousness. He may have tripped and fallen. He spent last night at the [facility] for his safety. He was not suicidal and was not homicidal. He states that today he feels safer. He slept well last night. He denied any fever or chills. No cough or shortness of breath. No chest pain or abdominal pain. Bowel and bladder are unchanged. Appetite is good. Weight is stable. His cat has not been ill. He wears reading glasses and wears upper and lower dentures. He thinks he took his pills, but the more we look into this, he probably has missed a day or two of his medications. We were able to review [facility] [place] dated 12/16/2016. He saw a physician by telemedicine. Those notes state that he presented with a roughly 3-week history of increasing confusion and memory loss. He had been on hydrochlorothiazide. He had issues with hypokalemia, dehydration and hypotension and the medication was discontinued. Note also states that he has had frequent falls in the recent past. No other complaints. From [facility]/03/2016, [facility]. I happened to be aware of that visit. On that day, he had made a passing comments about dying, although he was not actively suicidal. It was felt that for his safety, he should be in the [facility] and he agreed to that stay. As we were approaching a holiday weekend (), it was felt that it would be difficult to monitor him in his apartment. . CURRENT MEDICATIONS: His current med list is reviewed. It was provided by the [facility]. Med listed is correct and was reconciled in [place]. ALLERGIES: No known allergies. PHYSICAL EXAMINATION: General: He is awake, alert. He is cooperative and appropriate. Vital signs: Blood pressure 112/70, pulse 85, respiratory rate 18, oxygen saturation 99% on room air, temperature 97.9. Height 5 feet 8 inches. Weight 165 pounds 8 ounces. BMI 25. HEENT: Unremarkable. ENT was clear. No adenopathy. No JVDs or bruits. Sclerae were nonicteric. Conjunctivae not injected. Mouth showed moist mucous membranes. No injuries to head or face. Neck supple, non-tender. Chest: Showed clear, but diminished bilateral breath sounds. Heart: Showed regular rate and rhythm. Abdomen: Soft, flat, and benign. Extremities: Showed no edema. Palpable peripheral pulses. Neurological: There were no gross motor or sensory deficits. He was alert, oriented, and cooperative. LABORATORY DATA: CBC at time of admission showed a white count of 23,000 with 80% neutrophils, 12% lymphocytes. Hemoglobin and hematocrit 14 and 40, platelets were normal. Chemistry showed potassium of 3.0. Remainder of electrolytes were unremarkable. BUN and creatinine were 17 and 0.8 with a GFR of more than 60. Nonfasting blood sugar was 111. LFTs were completely within normal limits. Ammonia level was normal at 34. Amylase and lipase were both normal. Urinalysis was negative and urine toxicology was positive only for tricyclic antidepressants which he is currently taking. No alcohol was detected. Because of the elevated white count, chest x-ray was performed and was unremarkable. It showed no infiltrate, no cardiomegaly, no pulmonary venous congestion. It was compared to a previous study from 11/22/2016, and there was no significant interval change. A CT scan of the head without contrast was performed because of the fall and the altered mental status. It was compared to a previous study from 11/22/2016. There was no significant interval change. There was no acute intracranial process. IMPRESSION: A 56-year-old male with history of schizoaffective disorder, has had several falls recently with increasing confusion. He had one recent admission to [facility] and was housed overnight at the [facility] for safety issues. Please note: He was not under arrest. PLAN: 1. He will be admitted for further evaluation. 2. Because of the increased white count, without any other focal findings, two sets of blood cultures were ordered. We will also repeat the white blood cell count in the morning. One possible explanation for the elevated white count could be demargination secondary to the stress of being at the [facility] overnight. At this time, we will not start him on an antibiotic, as we have no indication of focal or systemic infection. 3. His usual medications will be continued. His anti-psychotic depot medication is up to date. 4. Tobacco habituation. Transdermal nicotine patches will be used during the admission. 5. Chronic obstructive pulmonary disease. Orders were written for p.r.n. bronchodilator therapy. 6. No heparin or Lovenox will be used for DVT prophylaxis as he is up, ambulatory and moving. A short admission is anticipated. We will place MELODY [place]. 7. He was placed on a regular diet. 8. Possible placement was discussed with Mg and with his providers at the [facility]. We feel that we should seek placement and we will approach Sebastian Ferguson about this. It is unlikely that he needs a care home facility but would probably do well in the basic care environment. 9. Repeat lab work has been ordered for tomorrow morning including white blood cell count with a manual differential, a repeat potassium, and a TSH. CONDITION AT TIME OF ADMISSION: Hemodynamically, neurologically stable. CODE STATUS: Full code. [facility] /[id number] MTDD
--- NOTE | 2017-01-14 13:44 | PN ---
DATE: 12/19/2016 HISTORY OF PRESENT ILLNESS: Mg was admitted last evening because of increased confusion over the last 3 to 4 days. His past medical history is significant for schizoaffective disorder for which he is followed at the [facility]. Workup at the time of admission showed an increased white count of 23,000 with non focal physical findings. Lab work was repeated today. His usual medications were continued. He is wearing transdermal nicotine patches for his tobacco habituation. We have not placed him on any DVT prophylaxis such as heparin or enoxaparin because he is up ambulatory and moving, and a short admission is anticipated. He is wearing MELODY hose. He did well overnight. The only issue of note is the fact that he was rather upset and nervous at times and kept coming out into the nurses station with his cell phone. He said that he was talking with his brother, and he wanted to be sure that he was not under arrest or going to be arrested or sent back to shelter. He had stayed at the [facility] last night as a safety issue not because he was arrested. He does have a minor legal matter pending, but it is extremely unlikely that he will receive shelter time over it and we assured him about this. Otherwise, he seems calmer and does not exhibit any marked confusion. Repeat lab work this morning shows white count has come down to 11,300 with 70% neutrophils, 6% bands, 20% lymphocytes. Repeat potassium was 2.9, and a TSH was 0.67. Oral potassium was ordered because of the hypokalemia. He is on oral potassium chloride at home. It is possible he has missed several doses of his medications in the last few days. Review of his clinical data shows he is taking in adequate fluids. He is voiding. He is tolerating his diet. Vital signs are stable. Blood pressure is controlled and improved now that he is back on his amlodipine. He remains afebrile. PHYSICAL EXAMINATION: General: He is in his room. He is in good spirits. He voices no new concerns or complaints. Vital signs: Blood pressure 128/81, pulse 90, respiratory rate 20, oxygen saturation 99% on room air. He is afebrile. HEENT: Unremarkable. ENT was clear. Chest: Showed diminished, but clear bilateral breath sounds without active wheezing. Heart: Showed regular rate and rhythm. Abdomen: Benign. Extremities: Showed no edema. Neurologic: He was intact. Mood and affect were stable. He does have some mild tardive dyskinesia with occasional lip-smacking and some pill-rolling finger movements. Lab work was ordered for tomorrow. We will repeat the serum potassium level. We are discussing placement issues today. We are looking at admission to [facility]. The nurse manager parking from [facility] did come up to see Mg. He is aware that we are seeking placement, and he is open to the idea and in agreement. No changes were made in his care today. Repeat lab work is ordered for tomorrow morning, and at this point, we are looking at discharge to [facility]. [facility] /[id number] MTDD
--- NOTE | 2017-01-15 06:13 | DISCH ---
DISCHARGE DIAGNOSES: 1. History of several days of confusion prior to admission, improved and stable. 2. Schizoaffective disorder, stable on current medications which include monthly depot injections of Invega Sustenna. 3. Anxiety, improved. He has a number of social concerns at this time, which we are helping him manage. 4. Tobacco habituation, continues to smoke at least 1 pack of cigarettes a day. 5. Hypertension, controlled now that he is back on medications. 6. Hypokalemia, resolved. 7. Leukocytosis with a nonfocal examination. White count has come down to 12.7, at time of discharge. No antibiotics were administered. BRIEF HISTORY OF PRESENT ILLNESS: Mg is a 56-year-old gentleman, who is followed by the [facility] and [facility]. He has a long history of schizoaffective disorder. For several days prior to admission, he became increasingly confused. There had been a fall on his apartment, he hit the back of his head. There was no injury and no loss of consciousness, but he became increasingly agitated and was [facility] reasons only prior to being brought to the hospital for evaluation and admission. We communicated with the staff at [facility] and we feel at this point, that we should seek a change in Mg's living situation and he will be discharged today to basic care. PERTINENT LABORATORY DATA AND X-RAYS: CBC on day of admission showed an elevated white count of 23,000, this came down to 12,700. Hemoglobin and hematocrit were 14 and 40, platelets were normal. Manual differential showed 70% neutrophils, 20% lymphocytes. Electrolytes showed low potassium of 3.0, and on repeat 2.9. Potassium was replaced and violeta to 3.7, prior to discharge. The remainder of the electrolytes were unremarkable. Renal function is intact with GFR more than 60. LFTs are within normal limits. Amylase and lipase were normal. Ammonia level was normal at 34. Lactic acid was normal at 1.5. TSH was normal at 0.67. A urinalysis was negative. Urine toxicology was positive only for tricyclic antidepressants, for which he is on a prescription. Blood alcohol was not detected. Two sets of blood cultures showed no growth after 5 days. A 2-view chest x-ray was taken at time of admission. It showed no pneumonia or infiltrate and no acute cardiopulmonary disease when compared to a previous study from October 2016. Because of the fall and because of the confusion, a noncontrast CT scan of the head was obtained and compared to previous study from 11/22/2016. There was no acute interval change. There was mild cortical atrophy present. No evidence for any intra or extracerebral hemorrhage. No hydrocephalus. No bony injuries. Overall, it was an unremarkable study. We had labs available for comparison from [facility] [place]. These labs had been performed on December 16, and showed normal renal and liver function, as well as a normal CBC and normal fasting blood sugar. HOSPITAL COURSE: Mg was admitted, he was placed back on all of his medications; he is up-to-date on his antipsychotic depot injections. He gradually improved, he was less nervous and agitated. We will be discharging him today to a basic care environment and he is in agreement with this. This has been discussed at length with [facility] and his guardian. We feel that he will do better in a different environment at this time, one which is more supportive and where he will be able to interact more with others. Review of his clinical data on the day of discharge shows that he is taking in adequate fluids, he is voiding, moving his bowels, he is tolerating his meals well. Vital signs have been stable. Blood pressure has been improved, now he is back on his amlodipine. PHYSICAL EXAMINATION: On the day of discharge. Vital Signs: Blood pressure is 111/69, pulse 85, respiratory rate 20, oxygen saturation 98% on room air, and he is afebrile. Weight 165 pounds 8 ounces. Height 5 feet 8 inches. HEENT: Unremarkable. ENT was clear. He does have some tardive dyskinesia with lip-smacking. Chest: Showed clear bilateral breath sounds without wheezes, rales, or rhonchi. Heart: Showed regular rate and rhythm without murmurs, rubs, or gallops. Abdomen: Soft and benign. Extremities: Showed no edema. Neurological: There were no gross motor or sensory deficits. He does have some tardive dyskinesia with mild lip-smacking and some pill-rolling of the fingers, but otherwise is alert, oriented, cooperative, and appropriate. He seems calmer than when he was first admitted and less preoccupied and worried. DISCHARGE MEDICATIONS: 1. Albuterol inhaler 2 puffs q.i.d. p.r.n. for shortness of breath. 2. Maalox 2 tablespoons t.i.d. p.r.n. for dyspepsia. 3. Amitriptyline 150 mg at bedtime. 4. Symbicort 160/4.5 mcg two puffs b.i.d. 5. Vitamin D3, 2000 units daily. 6. Cyclobenzaprine 10 mg at bedtime. 7. Duloxetine 60 mg daily. 8. Artificial tears 2 drops both eyes four times a day. 9. Folic acid 1 mg daily. 10.Ibuprofen 800 mg t.i.d. p.r.n. for pain. 11.Transdermal lidocaine patch 5%, one every 12 hours to low back. See comment below. 12.Multivitamin with minerals 1 tab daily. 13.Omeprazole 40 mg daily. 14.Potassium chloride 20 mEq twice a day. 15.Simvastatin 20 mg at bedtime. 16.Thiamine 100 mg daily. 17.Amlodipine 5 mg daily. 18.Hydroxyzine 25 mg t.i.d. for anxiety. 19.Invega Sustenna 117 mg IM every 28 days for psychosis. Our initial plan had been to send Mg out with transdermal patches for his nicotine habituation. He did have a supply that had been provided by the [facility]. Once he got to [facility] [place], however, he preferred to go back to smoking and will not wear the transdermal patches. The order was discontinued. ALLERGIES: No known allergies. Code status during this admission: Full code. CONDITION AT THE TIME OF DISCHARGE: Much improved and stable. [facility] /[id number] MTDD
== END 2016-12-20 10:10 ==
LOC: DL.ED 16:39 → DL.MS 18:57 → INTOOBSV 18:57 → UNDOADMOB 18:57 → DL.MS 19:58
PROVIDERS: ADMIT Internal Medicine; ATTEND Internal Medicine
DX: R41.82 Altered mental status, unspecified (principal); D72.828 Other elevated white blood cell count; I10 Essential (primary) hypertension; J45.909 Unspecified asthma, uncomplicated; F17.210 Nicotine dependence, cigarettes, uncomplicated; Z79.899 Other long term (current) drug therapy
CPT/HCPCS: 36415; 70450; 71020; 80053; 80305; 81001; 82140; 82150; 83605; 83690; 83735; 84132; 84443; 85007; 85025; 85048; 87040; 97161; 97165; 99285; A9270; G0480; 99284; G0378

== ENCOUNTER 2017-01-25 11:50 | Emergency (ER) | payer MEDICARE, MEDICAID ==
--- NOTE | 2017-01-25 12:08 | EDM.PDOC ---
ED HPI GENERAL MEDICAL PROBLEM - General Chief Complaint: General Time Seen by Provider: 01/25/17 12:34 Source of Information: Reports: Patient, RN, RN Notes Reviewed, Other (Dr. Gomez ) History Limitations: Reports: No Limitations - History of Present Illness INITIAL COMMENTS - FREE TEXT/NARRATIVE: Escalating behaviors consistent with apple in detention setting over the past several days. Staff has reported that patient has become sexually inappropriate soliciting staff and other patients. Patient states that he has slept very little for the past one weeks. Patient states that he is smoking one cigarettes after another and cannot seem to quit. Patient also states that his thoughts seem to be coming so quickly that he cannot process them. Denies sny suicidal or homicidal thoughts. Severity: Severe - Related Data Allergies Allergy/AdvReac Type Severity Reaction Status Date / Time No Known Allergies Allergy Verified 01/25/17 12:05 Home Meds: Home Meds Albuterol Inhaler 2 puff IH QID PRN 01/12/14 [History] Amitriptyline [Elavil] 150 mg PO BEDTIME 01/12/14 [History] Budesonide/Formoterol [Symbicort 160-4.5 MCG] 2 puff IH BID 01/12/14 [History] Cholecalciferol (Vitamin D3) [Vitamin D3] 2,000 units PO DAILY 01/12/14 [History ] Folic Acid 1 mg PO DAILY 01/12/14 [History] Multivitamin with Minerals [Multivitamins with Minerals] 1 tab PO DAILY [History] Omeprazole 40 mg PO DAILY 01/12/14 [History] Thiamine HCl 100 mg PO DAILY 01/12/14 [History] hydrOXYzine HCl [hydrOXYzine] 25 mg PO TID PRN 01/12/14 [History] Cyclobenzaprine [Flexeril] 10 mg PO BEDTIME 11/22/16 [History] DULoxetine HCl [Duloxetine HCl] 60 mg PO DAILY 11/22/16 [History] Ibuprofen 800 mg PO TID PRN 11/22/16 [History] Paliperidone Palmitate [Invega Sustenna] 117 mg IM Q28D 11/22/16 [History] Dextran 70/Hypromellose [Artificial Tears] 2 drop EYEBOTH QID PRN 12/18/16 [ History] Potassium Chloride 20 meq PO BID 12/18/16 [History] Lidocaine [Lidoderm] 1 patch TOP Q24H 01/25/17 [History] Simvastatin [Zocor] 20 mg PO BEDTIME 01/25/17 [History] amLODIPine [Norvasc] 5 mg PO DAILY 01/25/17 [History] Past Medical History HEENT History: Reports: Impaired Vision Cardiovascular History: Reports: Hypertension Respiratory History: Reports: Asthma, COPD Musculoskeletal History: Reports: Back Pain, Chronic Neurological History: Reports: Concussion Psychiatric History: Reports: Schizophrenia - Infectious Disease History Infectious Disease History: Reports: Chicken Pox - Past Surgical History HEENT Surgical History: Reports: Adenoidectomy, Tonsillectomy Social & Family History - Family History Family Medical History: Noncontributory - Tobacco Use Smoking Status *Q: Current Every Day Smoker Years of Tobacco use: 44 Packs/Tins Daily: 1 Used Tobacco, but Quit: No Second Hand Smoke Exposure: Yes - Caffeine Use Caffeine Use: Reports: Coffee, Soda - Alcohol Use Days Per Week of Alcohol Use: 0 - Recreational Drug Use Recreational Drug Use: No Drug Use in Last 12 Months: Yes Recreational Drug Type: Reports: Marijuana/Hashish Recreational Drug Use Frequency: Daily ED ROS GENERAL - Review of Systems Review Of Systems: ROS reveals no pertinent complaints other than HPI. ED EXAM, GENERAL - Physical Exam Exam: See Below Exam Limited By: No Limitations General Appearance: Alert, WD/WN, No Apparent Distress Eye Exam: Bilateral Eye: Normal Inspection Ears: Normal External Exam, Normal Canal, Hearing Grossly Normal, Normal TMs Nose: Normal Inspection, Normal Mucosa, No Blood Throat/Mouth: Normal Inspection, Normal Lips, Normal Teeth, Normal Gums, Normal Oropharynx, Normal Voice, No Airway Compromise Head: Atraumatic, Normocephalic Neck: Normal Inspection, Supple, Non-Tender, Full Range of Motion Respiratory/Chest: Other (occasional wheezes bilateral mid-upper lung ibarra. ) Cardiovascular: Regular Rate, Rhythm, Tachycardia GI/Abdominal: Normal Bowel Sounds, Soft, Non-Tender, No Organomegaly, No Distention, No Abnormal Bruit, No Mass Back Exam: Normal Inspection, Full Range of Motion, NT Extremities: Normal Inspection, Normal Range of Motion, Non-Tender, Normal Capillary Refill, No Pedal Edema Neurological: Alert, Oriented, CN II-XII Intact, Normal Cognition, Normal Gait, Normal Reflexes, No Motor/Sensory Deficits Psychiatric: Other (mnic. Agitated. ) Skin Exam: Warm, Dry, Intact, Normal Color, No Rash Lymphatic: No Adenopathy Course - Vital Signs Last Recorded V/S: Last Vital Signs Temp 36.2 C 01/25/17 11:57 Pulse 128 H 01/25/17 11:57 Resp 20 01/25/17 11:57 BP 156/94 H 01/25/17 11:57 Pulse Ox 94 L 01/25/17 11:57 - Orders/Labs/Meds Orders: Active Orders 24 hr Category Date Time Status Metoprolol Succinate [Toprol XL] Med 01/25/17 13:01 Once 25 mg PO ONETIME ONE Medication Orders Metoprolol Succinate (Toprol Xl) 25 mg PO ONETIME ONE Stop: 01/25/17 13:02 Labs: Laboratory Tests 01/25/17 01/25/17 01/25/17 Range/Units 11:53 11:53 12:03 WBC 14.7 H (5.0-10.0) 10^3/uL RBC 4.95 (4.6-6.2) 10^6/uL Hgb 14.4 (14.0-18.0) g/dL Hct 42.8 (40.0-54.0) % MCV 86.5 (80-100) fL MCH 29.1 (27.0-34.0) pg MCHC 33.6 (33.0-35.0) g/dL Plt Count 325 (150-450) 10^3/uL Neut % (Auto) 73.9 (42.2-75.2) % Lymph % (Auto) 14.6 L (20.5-50.1) % Butler % (Auto) 7.9 (2-8) % Eos % (Auto) 3.3 H (1.0-3.0) % Baso % (Auto) 0.3 (0.0-1.0) % Sodium (135-145) mmol/L Potassium (3.6-5.0) mmol/L Chloride (101-111) mmol/L Carbon Dioxide (21.0-31.0) mmol/L Anion Gap BUN (7-18) mg/dL Creatinine (0.6-1.3) mg/dL Est Cr Clr Drug Dosing mL/min Estimated GFR (MDRD) BUN/Creatinine Ratio Glucose (74-105) mg/dL Calcium (8.4-10.2) mg/dl Total Bilirubin (0.2-1.0) mg/dL AST (10-42) IU/L ALT (10-60) IU/L Alkaline Phosphatase (42-121) IU/L Total Protein (6.7-8.2) g/dl Albumin (3.2-5.5) g/dl Globulin Albumin/Globulin Ratio Urine Color Yellow (YELLOW) Urine Appearance Clear (CLEAR) Urine pH 6.5 (5.0-9.0) Ur Specific [place] 1.020 (1.005-1.030) Urine Protein Negative (NEGATIVE) Urine Glucose (UA) Negative (NEGATIVE) Urine Ketones Negative (NEGATIVE) Urine Occult Blood Negative (NEGATIVE) Urine Nitrite Negative (NEGATIVE) Urine Bilirubin Negative (NEGATIVE) Urine Urobilinogen 0.2 (0.2-1.0) mg/dL Ur Leukocyte Esterase Negative (NEGATIVE) Urine RBC 0-5 /HPF Urine WBC 0-5 (0-5/HPF) /HPF Ur Epithelial Cells Rare /HPF Urine Mucus Rare /LPF Salicylates Urine Opiates Screen Negative (NEGATIVE) Ur Oxycodone Screen Negative (NEGATIVE) Urine Methadone Screen Negative (NEGATIVE) Acetaminophen Ur Barbiturates Screen Negative (NEGATIVE) U Tricyclic Antidepress Positive H (NEGATIVE) Ur Phencyclidine Scrn Negative (NEGATIVE) Ur Amphetamine Screen Negative (NEGATIVE) U Methamphetamines Scrn Negative (NEGATIVE) Urine MDMA Screen Negative (NEGATIVE) U Benzodiazepines Scrn Negative (NEGATIVE) Urine Cocaine Screen Negative (NEGATIVE) U Marijuana (THC) Screen Positive H (NEGATIVE) Ethyl Alcohol mg/dL 01/25/17 Range/Units 12:03 WBC (5.0-10.0) 10^3/uL RBC (4.6-6.2) 10^6/uL Hgb (14.0-18.0) g/dL Hct (40.0-54.0) % MCV (80-100) fL MCH (27.0-34.0) pg MCHC (33.0-35.0) g/dL Plt Count (150-450) 10^3/uL Neut % (Auto) (42.2-75.2) % Lymph % (Auto) (20.5-50.1) % Butler % (Auto) (2-8) % Eos % (Auto) (1.0-3.0) % Baso % (Auto) (0.0-1.0) % Sodium 139 (135-145) mmol/L Potassium 3.4 L (3.6-5.0) mmol/L Chloride 102 (101-111) mmol/L Carbon Dioxide 24.0 (21.0-31.0) mmol/L Anion Gap 16.4 BUN 16 (7-18) mg/dL Creatinine 0.9 (0.6-1.3) mg/dL Est Cr Clr Drug Dosing 87.61 mL/min Estimated GFR (MDRD) > 60 BUN/Creatinine Ratio 17.77 Glucose 147 H (74-105) mg/dL Calcium 9.7 (8.4-10.2) mg/dl Total Bilirubin 0.9 (0.2-1.0) mg/dL AST 41 (10-42) IU/L ALT 49 (10-60) IU/L Alkaline Phosphatase 72 (42-121) IU/L Total Protein 7.6 (6.7-8.2) g/dl Albumin 4.9 (3.2-5.5) g/dl Globulin 2.7 Albumin/Globulin Ratio 1.81 Urine Color (YELLOW) Urine Appearance (CLEAR) Urine pH (5.0-9.0) Ur Specific [place] (1.005-1.030) Urine Protein (NEGATIVE) Urine Glucose (UA) (NEGATIVE) Urine Ketones (NEGATIVE) Urine Occult Blood (NEGATIVE) Urine Nitrite (NEGATIVE) Urine Bilirubin (NEGATIVE) Urine Urobilinogen (0.2-1.0) mg/dL Ur Leukocyte Esterase (NEGATIVE) Urine RBC /HPF Urine WBC (0-5/HPF) /HPF Ur Epithelial Cells /HPF Urine Mucus /LPF Salicylates < 4 Urine Opiates Screen (NEGATIVE) Ur Oxycodone Screen (NEGATIVE) Urine Methadone Screen (NEGATIVE) Acetaminophen < 10 Ur Barbiturates Screen (NEGATIVE) U Tricyclic Antidepress (NEGATIVE) Ur Phencyclidine Scrn (NEGATIVE) Ur Amphetamine Screen (NEGATIVE) U Methamphetamines Scrn (NEGATIVE) Urine MDMA Screen (NEGATIVE) U Benzodiazepines Scrn (NEGATIVE) Urine Cocaine Screen (NEGATIVE) U Marijuana (THC) Screen (NEGATIVE) Ethyl Alcohol < 5 mg/dL Meds: Medications Generic Name Dose Route Start Last Admin Trade Name Freq PRN Reason Stop Dose Admin Metoprolol Succinate 25 mg 01/25/17 13:01 Toprol Xl PO 01/25/17 13:02 ONETIME ONE Departure - Departure Time of Disposition: 13:05 Disposition: DC/Tfer to Psych Hosp/Unit [facility] Condition: fair Clinical Impression: Bipolar disorder with severe apple - Discharge Information Forms: ED Department Discharge, Interfacility Transfer EMTALA - My Orders Last 24 Hours: My Active Orders 01/25/17 13:01 Metoprolol Succinate [Toprol XL] 25 mg PO ONETIME ONE - Assessment/Plan Last 24 Hours: My Active Orders 01/25/17 13:01 Metoprolol Succinate [Toprol XL] 25 mg PO ONETIME ONE
[2017-01-25 12:30] LABS: CHLORIDE,CL 102 mmol/L (101-111); SODIUM,NA 139 mmol/L (135-145)
[2017-01-25 12:31] LABS: ACETAMINOPHEN < 10
[2017-01-25] MEDS ORDERED: Metoprolol Succinate 25 MG Tab.ER PO ONE (13:01)
--- NOTE | 2017-01-25 13:07 | PCM.SN ---
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 Other past medical history includes: tobacco habituation, COPD, anxiety, hypertension. History of the current illness: Mg has demonstrated increasing anxiety and agitation over the last week, worse in the last 24 hours. In the last month, he has had two overnight mental-health holds, as well as a short stay in the [facility]. He has also had a major change in his living situation: he had been in his own apartment (supervised by [facility]) and after a brief hospitalization, was admitted to Basic Care at the [facility] in [place]. Adding to his anxiety is the fact that he has been from his cat , Mervin, who remained alone back at his apartment for the better part of a month. The cat has now been removed from the apartment and being cared for, but Mg continues to obsess about the cat. On Friday, January 22, he became upset over several issues and stormed out of the [facility], eventually going to the [facility] [place] "to get cigarettes." He was found at 10 PM and brought back by the police for a mental health hold overnight. He was seen by KARINA Hillman at the [place] the following day and she has agreed to follow him now that he is in Basic Care. When he returned to the facility, staff reviewed general rules and guidelines with him. Since his return, his behavior has raised further concerns. He has been wandering the halls of [facility] both and Friday nights. He attempted to enter several residents's rooms but was stopped by staff. He then followed the CNAs and offered one of them $10 to come back to his room in Basic Care for a sexual encounter. I contacted the Crisis Counsellor for [facility] this morning to discuss these problems. It has been decided that Mg will be admitted to the [facility] for further evaluation and management. Mg was brought to the hospital for medical clearance. Clearance workup has been completed. I have spoken with the admitting provider cast iron dipper at [place]. Impression: Schizoaffective disorder, bipolar type, now with increasing behaviors. Plan: Admit to [facility]. [facility] will transport.
[2017-01-25 13:11] VITALS: BP 151/94
== END 2017-01-25 13:15 ==
LOC: DL.ED 11:50
DX: F31.9 Bipolar disorder, unspecified (principal); I10 Essential (primary) hypertension; J45.909 Unspecified asthma, uncomplicated; J44.9 Chronic obstructive pulmonary disease, unspecified; F17.210 Nicotine dependence, cigarettes, uncomplicated; Z79.899 Other long term (current) drug therapy; Z98.890 Other specified postprocedural states
CPT/HCPCS: 36415; 80053; 80305; 81001; 85025; 99284; A9270; G0480